=== PATIENT | female | born 1950 | race Caucasian/White ===

== ENCOUNTER 2016-09-16 15:45 | Inpatient (IN) | payer OTHER ==
[~2016-09-16] VITALS: Ht 162.6 cm; Wt 111.6 kg
[~2016-09-16 15:45] MED LIST: ALPR-475 PO; AMLO2.5T PO; DAPT500V6 IV; ENOX30DI3 SQ; FLUT16SP NAS; GABA600T2 PO; HYDR25TA6 PO; IBUP-1222 PO; LEVO112T4 PO; LOSA50TA6 PO; ONDA4TAB10 PO; OXYC1TAB9 PO; PIPE4.5V3 IV; POTA20TA14 PO; SIMV10TA3 PO
[2016-09-16] MEDS ORDERED: MORPHINE SULFATE 4 MG/ML, 1ML IVPush PRN (17:00)
[2016-09-16] MEDS ORDERED: SODIUM CHLORIDE 0.9% 1,000ML IVBOLUS ONE ×3 (17:00→19:30)
[2016-09-16] MEDS ORDERED: ONDANSETRON 2MG/ML, 2ML IVPush ONE (17:00)
[2016-09-16] MEDS ORDERED: SODIUM CHLORIDE FLUSH 10ML SYR IVF ONE (17:00)
[2016-09-16] MEDS ORDERED: ONDANSETRON 2MG/ML, 2ML ONE (17:07)
[2016-09-16] MEDS ORDERED: MORPHINE SULFATE 4 MG/ML, 1ML ONE (17:07)
[2016-09-16 17:11] LABS: ASPARTATE AMINO TRANSFERASE 28 U/L (15-37); BLOOD UREA NITROGEN 26 mg/dL (7-18)
[2016-09-16 17:27] LABS: DIFF TOTAL CELLS COUNTED 100 CELL DIFF
[2016-09-16 17:30] LABS: ANISOCYTOSIS 1+; GIANT PLATELETS 1+; MONOS WITH VACUOLES 1+; POLYCHROMASIA 1+
[2016-09-16 17:31] LABS: VERIFY COUNTS? YES
[2016-09-16] MEDS ORDERED: NS + 40MEQ KCL 1,000 ML IV SCH (19:00)
[2016-09-16] MEDS ORDERED: HYDR25TA6 PO (19:16)
[2016-09-16] MEDS ORDERED: LOSA50TA6 PO (19:16)
[2016-09-16] MEDS ORDERED: SIMV10TA3 PO (19:16)
[2016-09-16] MEDS ORDERED: NS + 40MEQ KCL 1,000 ML IV ONE (19:26)
[2016-09-16] MEDS ORDERED: VANCOMYCIN PER PHARMACY MC ONE (19:30)
[2016-09-16] MEDS ORDERED: PIPERACILLIN/TAZO 3.375 GM in SODIUM CHLORIDE 0.9% 50 ML IVPB ONE (19:30)
[2016-09-16] MEDS ORDERED: NS + 20MEQ KCL 1,000 ML IV ONE (19:59)
[2016-09-16] MEDS ORDERED: VANCOMYCIN 1,800 MG in SODIUM CHLORIDE 0.9% 250 ML IV ONE (20:00)
[2016-09-16] MEDS ORDERED: SODIUM CHLORIDE FLUSH 10ML SYR IVF PRN (20:00)
[2016-09-16] MEDS: NS + 20MEQ KCL 1,000 ML IV SCH (21:20)
[2016-09-16] MEDS ORDERED: morphine SULFATE 10 MG/ML, 1ML IVPush PRN (21:30)
[2016-09-16] MEDS ORDERED: ACETAMINOPHEN 325 MG TABLET PO PRN (21:30)
[2016-09-16] MEDS: FLUTICASONE NASAL SPRAY 16GM NAS SCH (21:30)
[2016-09-16] MEDS ORDERED: POLYETHYLENE GLYCOL 17 GM PACKET PO PRN (21:30)
[2016-09-16] MEDS ORDERED: BISACODYL 10 MG SUPP PR PRN (21:30)
[2016-09-16] MEDS ORDERED: VANCOMYCIN PER PHARMACY MC PRN (21:30)
[2016-09-16] MEDS: PIPERACILLIN/TAZO 3.375 GM in SODIUM CHLORIDE 0.9% 50 ML IV SCH (21:30)
[2016-09-16] MEDS ORDERED: GABAPENTIN 300 MG CAPSULE PO PRN (21:30)
[2016-09-16 22:27] VITALS: BP 119/76
[2016-09-16 22:29] VITALS: BP 119/76
[2016-09-16] MEDS ORDERED: PHARMACOKINETIC CONSULTATION MC ONE (23:00)
[2016-09-16] MEDS ORDERED: PHARMACOKINETIC MONITORING MC PRN (23:00)
[2016-09-16] MEDS: SIMVASTATIN 10 MG TABLET PO SCH (23:28)
[2016-09-16] MEDS: HEPARIN 5,000 UNITS/ML, 1ML SQ SCH (23:28)
[2016-09-17] MEDS: NS + 20MEQ KCL 1,000 ML IV SCH (01:28)
[2016-09-17 01:31] VITALS: BP 92/58
[2016-09-17] MEDS: PIPERACILLIN/TAZO 3.375 GM in SODIUM CHLORIDE 0.9% 50 ML IV SCH ×4 (03:51→23:51)
[2016-09-17 06:04] LABS: BLOOD UREA NITROGEN 18 mg/dL (7-18)
[2016-09-17 06:07] LABS: ASPARTATE AMINO TRANSFERASE 45 U/L (15-37)
[2016-09-17 06:27] LABS: DIFF TOTAL CELLS COUNTED 100 CELL DIFF
[2016-09-17 06:29] LABS: VERIFY COUNTS? YES
[2016-09-17 06:30] LABS: POLYCHROMASIA 1+
[2016-09-17 07:01] VITALS: BP 102/65
[2016-09-17] MEDS: HEPARIN 5,000 UNITS/ML, 1ML SQ SCH ×3 (07:35→23:30)
[2016-09-17] MEDS: SENNA/DOCUSATE TABLET PO SCH (08:38)
[2016-09-17] MEDS: FLUTICASONE NASAL SPRAY 16GM NAS SCH ×2 (08:38→20:28)
[2016-09-17] MEDS: LEVOTHYROXINE 112 MCG TABLET PO SCH (08:45)
[2016-09-17] MEDS ORDERED: POTASSIUM CHLORIDE 40 MEQ in SODIUM CHLORIDE 0.9% 500 ML IV ONE (09:00)
[2016-09-17 12:21] LABS: BLOOD UREA NITROGEN 14 mg/dL (7-18)
[2016-09-17 13:15] VITALS: BP 104/69
[2016-09-17] MEDS ORDERED: LIDOCAINE 1%, 20ML ONE (14:12)
[2016-09-17] MEDS ORDERED: MIDAZOLAM 1 MG/ML, 5ML ONE (14:17)
[2016-09-17] MEDS ORDERED: FENTANYL PF 100 MCG/2ML ONE (14:18)
[2016-09-17] MEDS ORDERED: NALOXONE 1 MG/ML, 2ML ONE (14:18)
[2016-09-17] MEDS ORDERED: ONDANSETRON 2MG/ML, 2ML ONE (14:48)
[2016-09-17] MEDS ORDERED: POTASSIUM CHLORIDE 20 MEQ TAB.ER.PRT PO ONE (15:00)
[2016-09-17] MEDS ORDERED: MORPHINE SULFATE 4 MG/ML, 1ML ONE (16:14)
[2016-09-17] MEDS: ONDANSETRON 2MG/ML, 2ML IVPush PRN (16:27)
[2016-09-17 16:42] VITALS: BP 103/67
[2016-09-17] MEDS: VANCOMYCIN 2,100 MG in SODIUM CHLORIDE 0.9% 500 ML IV SCH (17:33)
[2016-09-17 20:00] VITALS: BP 126/63
[2016-09-17] MEDS: SIMVASTATIN 10 MG TABLET PO SCH (20:29)
[2016-09-17] MEDS: HYDROcodone/APAP 5/325 TABLET PO PRN (20:29)
[2016-09-18 02:00] VITALS: BP 118/82
[2016-09-18] MEDS: HYDROcodone/APAP 5/325 TABLET PO PRN ×2 (03:46→21:19)
[2016-09-18 05:55] LABS: ASPARTATE AMINO TRANSFERASE 30 U/L (15-37); BLOOD UREA NITROGEN 10 mg/dL (7-18)
[2016-09-18 06:32] LABS: C-REACTIVE PROTEIN, QUANT > 19.00 mg/dL (0.02-0.49)
[2016-09-18] MEDS: PIPERACILLIN/TAZO 3.375 GM in SODIUM CHLORIDE 0.9% 50 ML IV SCH ×3 (06:52→18:04)
[2016-09-18] MEDS: HEPARIN 5,000 UNITS/ML, 1ML SQ SCH ×3 (07:30→21:11)
[2016-09-18 08:19] VITALS: BP 144/72
[2016-09-18] MEDS ORDERED: POTASSIUM CHLORIDE 20 MEQ TAB.ER.PRT PO ONE ×2 (08:30→15:00)
[2016-09-18] MEDS: NS + 20MEQ KCL 1,000 ML IV SCH ×3 (09:00→18:04)
[2016-09-18] MEDS: SENNA/DOCUSATE TABLET PO SCH (09:00)
[2016-09-18] MEDS: LEVOTHYROXINE 112 MCG TABLET PO SCH (09:00)
[2016-09-18] MEDS: FLUTICASONE NASAL SPRAY 16GM NAS SCH ×2 (09:00→21:00)
[2016-09-18 15:17] VITALS: BP 116/74
[2016-09-18] MEDS: VANCOMYCIN 2,100 MG in SODIUM CHLORIDE 0.9% 500 ML IV SCH (18:49)
[2016-09-18 20:00] VITALS: BP 128/75
[2016-09-18] MEDS: SIMVASTATIN 10 MG TABLET PO SCH (21:19)
[2016-09-18] MEDS: LACTOBACILLUS CHEW TABLET PO SCH (21:19)
[2016-09-19 02:00] VITALS: BP 122/74
[2016-09-19] MEDS: PIPERACILLIN/TAZO 3.375 GM in SODIUM CHLORIDE 0.9% 50 ML IV SCH ×4 (06:00→18:14)
[2016-09-19] MEDS: NS + 20MEQ KCL 1,000 ML IV SCH ×3 (06:11→12:40)
[2016-09-19] MEDS: HEPARIN 5,000 UNITS/ML, 1ML SQ SCH ×3 (07:30→21:30)
[2016-09-19 08:45] VITALS: BP 116/75
[2016-09-19] MEDS: FLUTICASONE NASAL SPRAY 16GM NAS SCH ×2 (09:00→21:00)
[2016-09-19] MEDS: SENNA/DOCUSATE TABLET PO SCH (09:00)
[2016-09-19] MEDS: LACTOBACILLUS CHEW TABLET PO SCH ×3 (10:00→21:30)
[2016-09-19] MEDS: LEVOTHYROXINE 112 MCG TABLET PO SCH (10:00)
[2016-09-19 12:55] VITALS: BP 123/75
[2016-09-19] MEDS: ONDANSETRON 2MG/ML, 2ML IVPush PRN (18:13)
[2016-09-19] MEDS: VANCOMYCIN 2,100 MG in SODIUM CHLORIDE 0.9% 500 ML IV SCH (18:14)
[2016-09-19 18:58] VITALS: BP 125/81
[2016-09-19] MEDS: HYDROcodone/APAP 5/325 TABLET PO PRN (19:55)
[2016-09-19] MEDS: SIMVASTATIN 10 MG TABLET PO SCH (21:30)
[2016-09-20] MEDS: PIPERACILLIN/TAZO 3.375 GM in SODIUM CHLORIDE 0.9% 50 ML IV SCH ×2 (00:41→05:38)
[2016-09-20] MEDS: NS + 20MEQ KCL 1,000 ML IV SCH ×4 (00:41→23:28)
[2016-09-20 01:52] VITALS: BP 129/76
[2016-09-20] MEDS: HYDROcodone/APAP 5/325 TABLET PO PRN ×3 (04:16→20:37)
[2016-09-20 04:35] LABS: ASPARTATE AMINO TRANSFERASE 38 U/L (15-37); BLOOD UREA NITROGEN 8 mg/dL (7-18)
[2016-09-20 07:02] VITALS: BP 125/85
[2016-09-20] MEDS: HEPARIN 5,000 UNITS/ML, 1ML SQ SCH ×3 (07:30→23:28)
[2016-09-20] MEDS: SENNA/DOCUSATE TABLET PO SCH (09:00)
[2016-09-20] MEDS: LEVOTHYROXINE 112 MCG TABLET PO SCH (09:00)
[2016-09-20] MEDS: FLUTICASONE NASAL SPRAY 16GM NAS SCH ×2 (09:00→21:00)
[2016-09-20] MEDS: LACTOBACILLUS CHEW TABLET PO SCH ×3 (09:00→20:37)
[2016-09-20] MEDS: ERTAPENEM 1 GM in SODIUM CHLORIDE 0.9% 50 ML IV SCH (11:31)
[2016-09-20 12:46] VITALS: BP 140/85
[2016-09-20] MEDS: SIMVASTATIN 10 MG TABLET PO SCH (20:37)
[2016-09-20 20:38] VITALS: BP 128/80
[2016-09-21 02:00] VITALS: BP 125/79
[2016-09-21] MEDS: HYDROcodone/APAP 5/325 TABLET PO PRN ×4 (02:53→20:16)
[2016-09-21] MEDS: NS + 20MEQ KCL 1,000 ML IV SCH ×2 (06:29→16:57)
[2016-09-21 06:52] VITALS: BP 131/81
[2016-09-21] MEDS: HEPARIN 5,000 UNITS/ML, 1ML SQ SCH (07:30)
[2016-09-21] MEDS: FLUTICASONE NASAL SPRAY 16GM NAS SCH ×2 (09:00→20:17)
[2016-09-21] MEDS: SENNA/DOCUSATE TABLET PO SCH (09:00)
[2016-09-21] MEDS: LACTOBACILLUS CHEW TABLET PO SCH ×3 (09:33→20:16)
[2016-09-21] MEDS: ERTAPENEM 1 GM in SODIUM CHLORIDE 0.9% 50 ML IV SCH (09:34)
[2016-09-21] MEDS: LEVOTHYROXINE 112 MCG TABLET PO SCH (09:34)
[2016-09-21 13:54] VITALS: BP 134/79
[2016-09-21 18:36] VITALS: BP 132/84
[2016-09-21] MEDS: SIMVASTATIN 10 MG TABLET PO SCH (20:16)
[2016-09-22] MEDS: NS + 20MEQ KCL 1,000 ML IV SCH (02:00)
[2016-09-22 02:03] VITALS: BP 127/78
[2016-09-22 05:56] LABS: ASPARTATE AMINO TRANSFERASE 20 U/L (15-37); BLOOD UREA NITROGEN 5 mg/dL (7-18)
[2016-09-22] MEDS: HYDROcodone/APAP 5/325 TABLET PO PRN ×2 (06:44→14:40)
[2016-09-22 07:40] VITALS: BP 150/83
[2016-09-22] MEDS: SENNA/DOCUSATE TABLET PO SCH (09:00)
[2016-09-22] MEDS: FLUTICASONE NASAL SPRAY 16GM NAS SCH (09:00)
[2016-09-22] MEDS: LEVOTHYROXINE 112 MCG TABLET PO SCH (10:27)
[2016-09-22] MEDS: ERTAPENEM 1 GM in SODIUM CHLORIDE 0.9% 50 ML IV SCH (10:27)
[2016-09-22] MEDS: LACTOBACILLUS CHEW TABLET PO SCH ×2 (10:27→16:00)
[2016-09-22 14:16] VITALS: BP 142/87
[2016-09-22] MEDS ORDERED: ACID1TAB7 PO (16:43)
== END 2016-09-22 17:47 | disposition home or self-care (01) | DRG 871 ==
LOC: ED 16:58 → EDIP 19:59 → 4WST 22:18
PROVIDERS: ADMIT Internal Medicine; ATTEND Internal Medicine
PROC: 0WJJ3ZZ Inspection of Pelvic Cavity, Percutaneous Approach (ICD-10-PCS; principal; 2016-09-17)
PROC: 02HV33Z Insertion of Infusion Device into Superior Vena Cava, Percutaneous Approach (ICD-10-PCS; 2016-09-19)
PROC: B5181ZA Fluoroscopy of Superior Vena Cava using Low Osmolar Contrast, Guidance (ICD-10-PCS; 2016-09-19)
PROC: B548ZZA Ultrasonography of Superior Vena Cava, Guidance (ICD-10-PCS; 2016-09-19)
PROC: 02HV33Z Insertion of Infusion Device into Superior Vena Cava, Percutaneous Approach (ICD-10-PCS; 2016-09-22)
PROC: B5181ZA Fluoroscopy of Superior Vena Cava using Low Osmolar Contrast, Guidance (ICD-10-PCS; 2016-09-22)
PROC: B548ZZA Ultrasonography of Superior Vena Cava, Guidance (ICD-10-PCS; 2016-09-22)
DX: A41.9 Sepsis, unspecified organism (principal); E43 Unspecified severe protein-calorie malnutrition; N17.0 Acute kidney failure with tubular necrosis; R65.21 Severe sepsis with septic shock; E87.1 Hypo-osmolality and hyponatremia; L02.211 Cutaneous abscess of abdominal wall; Z68.41 Body mass index [BMI] 40.0-44.9, adult; D75.89 Other specified diseases of blood and blood-forming organs; E78.5 Hyperlipidemia, unspecified; E66.01 Morbid (severe) obesity due to excess calories; I10 Essential (primary) hypertension; E87.6 Hypokalemia; E03.9 Hypothyroidism, unspecified; G89.29 Other chronic pain; K52.9 Noninfective gastroenteritis and colitis, unspecified; D47.3 Essential (hemorrhagic) thrombocythemia; D72.825 Bandemia; N94.89 Other specified conditions associated with female genital organs and menstrual cycle; N73.9 Female pelvic inflammatory disease, unspecified; M54.9 Dorsalgia, unspecified; Z88.5 Allergy status to narcotic agent; Z87.19 Personal history of other diseases of the digestive system; Z86.14 Personal history of Methicillin resistant Staphylococcus aureus infection; Z90.710 Acquired absence of both cervix and uterus; Z83.3 Family history of diabetes mellitus; Z85.42 Personal history of malignant neoplasm of other parts of uterus; Z90.49 Acquired absence of other specified parts of digestive tract; Z98.1 Arthrodesis status; Z79.899 Other long term (current) drug therapy
CPT/HCPCS: 36415; 36569; 49406; 71010; 74176; 75989; 76937; 77001; 80048; 80053; 80202; 81001; 83605; 83690; 83735; 84145; 85025; 85651; 86140; 87040; 87086; 87147; 87324; 89055; 93005; 96361; 96365; 96375; 99156; 99157; C1894; J1335; J1644; J2250; J2405; J2543; J3010; J3370; J3480; J3490; C1751; C1769; J2270; J2310; J7030; J7040; J7050

== ENCOUNTER → 2016-10-08 | Outpatient (CLI) | payer OTHER ==
[~2016-10-08] MED LIST changes: +ACID1TAB7 PO; +MELO-190 PO; +OMNIPAQUE 350 MG/ML, 100ML BOTTLE ONE
== END | disposition home or self-care (01) ==
LOC: CFH 13:47
PROVIDERS: ATTEND Internal Medicine Infectious Disease
DX: N73.9 Female pelvic inflammatory disease, unspecified (principal); K52.9 Noninfective gastroenteritis and colitis, unspecified; N30.90 Cystitis, unspecified without hematuria; N13.30 Unspecified hydronephrosis
CPT/HCPCS: 74177; Q9967

== ENCOUNTER 2016-10-16 12:19 | Day surgery (SDC) | payer OTHER ==
[~2016-10-16] VITALS: Ht 162.6 cm; Wt 102.0 kg
[~2016-10-16 12:19] MED LIST changes: +ERTA1VIA IV; -OMNIPAQUE 350 MG/ML, 100ML BOTTLE ONE
[2016-10-16 13:09] VITALS: BP 119/80
[2016-10-16] MEDS ORDERED: LIDOCAINE 2%, 20ML ONE (13:53)
[2016-10-16] MEDS ORDERED: OMNIPAQUE 350 MG/ML, 100ML BOTTLE ONE (14:03)
== END 2016-10-16 16:05 | disposition home or self-care (01) ==
LOC: SDC 12:19
PROVIDERS: ATTEND Internal Medicine Infectious Disease
DX: Z46.82 Encounter for fitting and adjustment of non-vascular catheter (principal); N73.8 Other specified female pelvic inflammatory diseases; Z86.14 Personal history of Methicillin resistant Staphylococcus aureus infection; Z85.42 Personal history of malignant neoplasm of other parts of uterus; E66.01 Morbid (severe) obesity due to excess calories; Z68.38 Body mass index [BMI] 38.0-38.9, adult; I10 Essential (primary) hypertension; E03.9 Hypothyroidism, unspecified; E43 Unspecified severe protein-calorie malnutrition; Z90.710 Acquired absence of both cervix and uterus; Z90.49 Acquired absence of other specified parts of digestive tract; Z98.890 Other specified postprocedural states; Z90.722 Acquired absence of ovaries, bilateral; Z90.79 Acquired absence of other genital organ(s)
CPT/HCPCS: 49423; 72193; 75984; 99156; 99157; C1729; C1751; C1769; J2250; J3010; J3490; Q9967; J2310

== ENCOUNTER → 2017-04-19 | Outpatient (CLI) | payer OTHER ==
[~2017-04-19] MED LIST changes: -MELO-190 PO; +MELO7.5T31 PO; +OMNIPAQUE 350 MG/ML, 100ML BOTTLE ONE
== END | disposition home or self-care (01) ==
LOC: RAD 15:05
PROVIDERS: ATTEND Family Medicine
DX: K92.2 Gastrointestinal hemorrhage, unspecified (principal); R10.2 Pelvic and perineal pain; R19.5 Other fecal abnormalities
CPT/HCPCS: 36415; 74177; 82565; Q9967

== ENCOUNTER → 2017-05-31 | Outpatient (CLI) | payer OTHER ==
[~2017-05-31] MED LIST changes: -OMNIPAQUE 350 MG/ML, 100ML BOTTLE ONE
== END | disposition home or self-care (01) ==
LOC: RAD 13:17
PROVIDERS: ATTEND Internal Medicine Gastroenterology
DX: R19.4 Change in bowel habit (principal); Z88.6 Allergy status to analgesic agent; Z88.1 Allergy status to other antibiotic agents; Z90.49 Acquired absence of other specified parts of digestive tract
CPT/HCPCS: 74018

== ENCOUNTER → 2018-02-16 | Outpatient (CLI) | payer OTHER ==
[~2018-02-16] MED LIST changes: -AMLO2.5T PO; +AMLO2.5T3 PO; -LOSA50TA6 PO; +LOSA50TA7 PO; +OXYC-432 PO; -OXYC1TAB9 PO
== END | disposition home or self-care (01) ==
LOC: CFH 08:08
PROVIDERS: ATTEND Nurse Practitioner Family
DX: M48.061 Spinal stenosis, lumbar region without neurogenic claudication (principal); M51.26 Other intervertebral disc displacement, lumbar region; M12.88 Other specific arthropathies, not elsewhere classified, other specified site
CPT/HCPCS: 72148

== ENCOUNTER → 2018-07-14 | Outpatient (CLI) | payer MEDICARE ==
[~2018-07-14] MED LIST changes: -AMLO2.5T3 PO; +AMLO2.5T5 PO; -GABA600T2 PO; +GABA600T7 PO; +LOSA50TA14 PO; -LOSA50TA7 PO
== END | disposition home or self-care (01) ==
LOC: RAD 13:05
PROVIDERS: ATTEND Family Medicine
DX: J10.1 Influenza due to other identified influenza virus with other respiratory manifestations (principal); I51.7 Cardiomegaly; M47.814 Spondylosis without myelopathy or radiculopathy, thoracic region; J98.11 Atelectasis
CPT/HCPCS: 71046

== ENCOUNTER 2019-11-27 13:41 | Outpatient (CLI) | payer MEDICARE ==
[~2019-11-27 13:41] MED LIST changes: -ALPR-475 PO; +ALPR0.5T7 PO; -FLUT16SP NAS; +FLUT16SP24 NAS; -OXYC-432 PO; +OXYC1TAB18 PO; +SIMV10TA18 PO; -SIMV10TA3 PO
== END 2019-11-27 23:59 | disposition home or self-care (01) ==
LOC: CVU 13:41
PROVIDERS: ATTEND Nurse Practitioner
DX: E78.2 Mixed hyperlipidemia (principal); L81.9 Disorder of pigmentation, unspecified; M79.605 Pain in left leg; M79.604 Pain in right leg
CPT/HCPCS: 93922

== ENCOUNTER → 2020-09-25 | Outpatient (CLI) | payer MEDICARE ==
[2020-09-25 14:29] LABS: BASOPHILS % (AUTO) 0 % (0-1); EOSINOPHILS % (AUTO) 3 % (1-7); LYMPHOCYTES % (AUTO) 23 % (22-44); MEAN CORPUSCULAR HEMOGLOBIN 33.3 pg (27.0-34.8); MEAN CORPUSCULAR HGB CONC 34.1 g/dL (32.4-35.8); MEAN PLATELET VOLUME 8.4 fL (7.4-10.4); MONOCYTES % (AUTO) 10 % (2-9); NEUTROPHILS % (AUTO) 64 % (42-75); PLATELET COUNT 285 x10^3/uL (130-400); RED CELL DISTRIBUTION WIDTH 12.3 % (9.6-15.2)
[2020-09-25 14:30] LABS: MD NO
[2020-09-25 14:40] LABS: ALANINE AMINOTRANSFERASE 30 U/L (12-78); ALBUMIN 3.8 g/dL (3.4-5.0); ANION GAP 7 mmol/L (5-15); CALCIUM 9.6 mg/dL (8.5-10.1); CHLORIDE 103 mmol/L (98-107); CREATININE 0.91 mg/dL (0.55-1.02)
[2020-09-25 15:05] LABS: ALKALINE PHOSPHATASE 81 U/L (45-117); BILIRUBIN,TOTAL 0.6 mg/dL (0.2-1.0); CHOL/HDL RATIO 3.3; CHOLESTEROL, TOTAL 174 mg/dL (140-239); HDL CHOL % 30 % (28-40); HDL CHOLESTEROL (DIRECT) 52 mg/dL (40-60); LDL CHOLESTEROL,CALCULATED 81 mg/dL (54-169); LDL/HDL RATIO 1.6 (0.5-3.0); TOTAL PROTEIN 8.2 g/dL (6.4-8.2); TRIGLYCERIDES 204 mg/dL (50-200); VLDL CHOLESTEROL 41 mg/dL (0-25)
[2020-09-25 15:07] LABS: FOLATE LEVEL > 20.0 ng/mL (3.1-17.5)
== END | disposition home or self-care (01) ==
LOC: LAB 13:59
PROVIDERS: ATTEND Nurse Practitioner Family
DX: E11.22 Type 2 diabetes mellitus with diabetic chronic kidney disease (principal); I12.9 Hypertensive chronic kidney disease with stage 1 through stage 4 chronic kidney disease, or unspecified chronic kidney disease; N18.31 Chronic kidney disease, stage 3a; E78.5 Hyperlipidemia, unspecified; E03.9 Hypothyroidism, unspecified; E66.01 Morbid (severe) obesity due to excess calories; L28.2 Other prurigo; R53.83 Other fatigue
CPT/HCPCS: 36415; 80053; 80061; 82043; 82306; 82570; 82607; 82746; 83036; 84443; 85025